=== PATIENT | female | born 1980 | race Caucasian/White ===

== ENCOUNTER → 2020-10-16 11:54 | Outpatient (CLI) | payer OTHER, SELFPAY ==
[2020-10-16 19:11] LABS: Add Manual Diff / Slide Review NO; Basophils Absolute Auto 0 /uL (0-100); Basophils Percent Auto 0.2 % (0-2); Eosinophils Absolute Auto 100 /uL (0-450); Eosinophils Percent Auto 1.2 % (2-4); Hematocrit 39.9 % (36-46); Hemoglobin 13.1 g/dL (12.0-16.0); Lymphocytes Absolute Auto 1500 /uL (1100-4500); Lymphocytes Percent Auto 25.1 % (25-40); Mean Corpuscular HGB Conc 32.7 % (30-36); Mean Corpuscular Hemoglobin 30.1 PG (26-34); Monocytes Absolute Auto 500 /uL (0-900); Monocytes Percent Auto 8.2 % (3-14); Neutrophils Absolute Auto 4000 /uL (1500-7000); Neutrophils Percent Auto 65.3 % (50-75); Platelet Count 211 X10^3/uL (150-400); Red Blood Cell Count 4.34 X10^6/uL (4.0-5.2); Red Cell Distribution Width 13.4 % (11.6-14.8); White Blood Cell Count 6.1 X10^3/uL (4.5-11.0)
[2020-10-16 19:57] LABS: COVID19 - ORCAS (NP or Nasal) Negative (Negative)
== END ==
PROVIDERS: Referring Provider Physician Assistant Medical; Visit Provider Physician Assistant Medical
DX: Z20.822 Contact with and (suspected) exposure to COVID-19 (principal); R50.9 Fever, unspecified
CPT/HCPCS: 85025; U0003

== ENCOUNTER → 2023-01-27 09:36 | Outpatient (CLI) | payer OTHER, SELFPAY ==
[2023-01-27 20:19] LABS: Add Manual Diff / Slide Review NO; Basophils Absolute Auto 0 /uL (0-100); Basophils Percent Auto 0.5 % (0-2); Eosinophils Absolute Auto 100 /uL (0-450); Eosinophils Percent Auto 2.4 % (2-4); Hematocrit 38.7 % (36-46); Hemoglobin 12.8 g/dL (12.0-16.0); Lymphocytes Absolute Auto 1700 /uL (1100-4500); Lymphocytes Percent Auto 40.8 % (25-40); Mean Corpuscular HGB Conc 33.1 % (30-36); Mean Corpuscular Hemoglobin 30.3 PG (26-34); Mean Corpuscular Volume 91.3 fL (80-100); Monocytes Absolute Auto 300 /uL (0-900); Monocytes Percent Auto 6.4 % (3-14); Neutrophils Absolute Auto 2100 /uL (1500-7000); Neutrophils Percent Auto 49.9 % (50-75); Platelet Count 253 X10^3/uL (150-400); Red Blood Cell Count 4.23 X10^6/uL (4.0-5.2); Red Cell Distribution Width 13.4 % (11.6-14.8); White Blood Cell Count 4.2 X10^3/uL (4.5-11.0)
[2023-01-27 20:31] LABS: Hemoglobin A1C% w Est Avg Glu 5.1 % (4.0-6.0)
[2023-01-27 20:44] LABS: Alanine Aminotransferase 20 IU/L (<35); Albumin Globulin Ratio 1.2 (1.0-2.8); Alkaline Phosphatase 90 U/L (38-126); Aspartate Aminotransferase 25 IU/L (14-36); Bilirubin Total 0.4 mg/dL (0.2-1.3); Blood Urea Nitrogen 15 mg/dL (7-17); Calcium 9.2 mg/dL (8.4-10.2); Carbon Dioxide 25 mmol/L (22-32); Chloride 103 mmol/L (98-107); Cholesterol 219 mg/dL (140-199); Estimated Glomerular Filt Rate > 60 mL/min (>60); Globulin 3.4 g/dL (1.7-4.1); Glucose 94 mg/dL (70-100); HDL Cholesterol 48 mg/dL (40-60); HEMOLYSIS < 15 (0-50); LDL Cholesterol Calculated 151 mg/dL (<100); Potassium 4.4 mmol/L (3.4-5.1); Sodium 137 mmol/L (137-145); Total Protein 7.4 g/dL (6.3-8.2); Triglycerides 100 mg/dL (35-150)
[2023-01-27 21:01] LABS: Thyroid Stimulating Hormone 1.25 uIU/mL (0.47-4.68)
[2023-01-27 21:12] LABS: Ferritin 21 ng/mL (6-137)
== END ==
PROVIDERS: PCP Family Medicine; Visit Provider Family Medicine
DX: E66.9 Obesity, unspecified (principal); R53.83 Other fatigue; Z13.1 Encounter for screening for diabetes mellitus; Z13.6 Encounter for screening for cardiovascular disorders
CPT/HCPCS: 80053; 80061; 82728; 83036; 84443; 85025

== ENCOUNTER → 2023-03-06 10:31 | Outpatient (CLI) | payer OTHER, SELFPAY ==
--- NOTE | 2023-03-06 10:32 | DI.MG.S_ITS ---
BILATERAL DIGITAL SCREENING MAMMOGRAM 3D/2D WITH CAD: 03/06/2023 CLINICAL: Routine screening. Baseline exam. No prior exams were available for comparison. Both breasts are heterogeneously dense, which may obscure small masses (category c / 51-75% glandular tissue). Current study was also evaluated with a Computer Aided Detection (CAD) system. There is a focal asymmetry in the right breast at 12 o'clock middle depth. No other significant masses, calcifications, or other findings are seen in either breast. IMPRESSION: INCOMPLETE: NEEDS ADDITIONAL IMAGING EVALUATION The focal asymmetry in the right breast is indeterminate. Additional views with possible ultrasound are recommended. Based on the Tyrer Cuzick model (a risk assessment model) the patient's lifetime risk is 15.0% and her 10 year risk is 2.1%. According to the ACR, ACS, and NCCN guidelines, an annual breast MRI exam along with mammogram is recommended if the patient's lifetime risk is 20% or greater. This exam was interpreted at Station ID: [id number]. NOTE: For mammograms, a report in lay terms will be sent to the patient. Approximately 15% of breast malignancies will not be visualized mammographically. In the management of a palpable breast mass, a negative mammogram must not discourage biopsy of a clinically suspicious lesion. Electronically Signed By: Love cortez/rob:03/08/2023 12:26:41 letter sent: Additional Imaging Needed ACR BI-RADS Category 0: Incomplete 3340F
== END ==
PROVIDERS: PCP Family Medicine; Referring Provider Family Medicine; Visit Provider Family Medicine
DX: Z12.31 Encounter for screening mammogram for malignant neoplasm of breast (principal)
CPT/HCPCS: 77063; 77067

== ENCOUNTER → 2023-04-08 09:11 | Outpatient (CLI) | payer OTHER, SELFPAY ==
--- NOTE | 2023-04-08 09:12 | DI.MG.S_ITS ---
UNILATERAL RIGHT DIGITAL DIAGNOSTIC MAMMOGRAM 3D/2D WITH ADDITIONAL VIEWS: 04/08/2023 CLINICAL: Additional evaluation requested from prior study. Comparison is made to exam dated: 03/06/2023 mammogram - [facility]. The right breast is heterogeneously dense, which may obscure small masses (category c / 51-75% glandular tissue). There is a focal asymmetry in the right breast at 12 o'clock middle depth. This corresponds to finding seen on baseline screening mammogram. No other significant masses or calcifications are seen in the breast. IMPRESSION: INCOMPLETE: NEEDS ADDITIONAL IMAGING EVALUATION Right breast middle 12 o'clock focal asymmetry seen on baseline screening mammogram. An ultrasound is recommended for further evaluation and is scheduled to immediately follow this examination. Based on the Tyrer Cuzick model (a risk assessment model) the patient's lifetime risk is 15.0% and her 10 year risk is 2.1%. According to the ACR, ACS, and NCCN guidelines, an annual breast MRI exam along with mammogram is recommended if the patient's lifetime risk is 20% or greater. This exam was interpreted at Station ID: [id number]. NOTE: For mammograms, a report in lay terms will be sent to the patient. Approximately 15% of breast malignancies will not be visualized mammographically. In the management of a palpable breast mass, a negative mammogram must not discourage biopsy of a clinically suspicious lesion. Electronically Signed By: Chayo Gallegos M.D., PH.D eb/:04/08/2023 13:18:38 ACR BI-RADS Category 0: Incomplete 3340F
--- NOTE | 2023-04-08 09:12 | DI.US.S_ITS ---
LIMITED ULTRASOUND OF RIGHT BREAST: 04/08/2023 CLINICAL: Patient returns today to evaluate an asymmetry in the right breast. Comparison is made to exams dated: 04/08/2023 mammogram and 03/06/2023 mammogram - [facility]. Color flow and real-time ultrasound of the right breast 12 o'clock region were performed. No sonographic correlate for mammographic focal asymmetry is seen at 12 o'clock, 5 cm from the nipple. IMPRESSION: PROBABLY BENIGN No sonographic correlate for mammographic focal asymmetry at 12 o'clock seen on baseline screening mammogram 03/06/2023. Finding is probably benign. Recommend follow-up Right breast mammogram in 6 months to demonstrate stability. Findings and recommendations were conveyed to the patient during today's evaluation. This exam was interpreted at Station ID: [id number]. Electronically Signed By: Chayo Gallegos M.D., PH.D eb/:04/08/2023 13:18:08 letter sent: Followup Recommended Ultrasound BI-RADS: 3 Probably benign
== END ==
PROVIDERS: PCP Family Medicine; Referring Provider Family Medicine; Visit Provider Family Medicine
DX: R92.8 Other abnormal and inconclusive findings on diagnostic imaging of breast (principal); N64.89 Other specified disorders of breast
CPT/HCPCS: 76642; 77065; G0279

== ENCOUNTER → 2023-05-25 13:03 | Outpatient (CLI) | payer OTHER, SELFPAY ==
[2023-05-25 20:11] LABS: LDL Cholesterol Direct 112 mg/dL (<100)
[2023-05-25 20:49] LABS: Vitamin B12 Reflex MMA if <400 203 pg/mL (239-931)
[2023-05-28 22:34] LABS: Methylmalonic Acid,Serum 220 nmol/L (0-378)
== END ==
PROVIDERS: PCP Family Medicine; Visit Provider Family Medicine
DX: Z71.3 Dietary counseling and surveillance (principal); E78.2 Mixed hyperlipidemia
CPT/HCPCS: 82607; 83721; 83921

== ENCOUNTER → 2024-01-17 11:56 | Outpatient (CLI) | payer BC, SELFPAY ==
--- NOTE | 2024-01-17 11:58 | DI.MG.S_ITS ---
BILATERAL DIGITAL DIAGNOSTIC MAMMOGRAM 3D/2D: 01/17/2024 CLINICAL: Short term follow up of the right breast, due for bilateral imaging. Comparison is made to exams dated: 04/08/2023 mammogram and 03/06/2023 mammogram - [facility]. The breasts are heterogeneously dense, which may obscure small masses (category c / 51-75% glandular tissue). There is a focal asymmetry in the right breast at 12 o'clock middle depth, not significantly changed since baseline screening mammogram 03/06/2023. No prior ultrasound correlate identified. No other significant masses, calcifications, or other findings are seen in either breast. IMPRESSION: PROBABLY BENIGN Right breast focal asymmetry at 12 o'clock middle depth, stable since baseline screening mammogram 03/06/2023 and without prior ultrasound correlate. Recommend follow-up mammogram in 12 months to demonstrate near 2 year stability. Patient will be due for bilateral exam at that time. Findings and recommendations were conveyed to the patient during today's evaluation. Based on the Tyrer Cuzick model (a risk assessment model) the patient's lifetime risk is 14.9% and her 10 year risk is 2.2%. According to the ACR, ACS, and NCCN guidelines, an annual breast MRI exam along with mammogram is recommended if the patient's lifetime risk is 20% or greater. This exam was interpreted at Station ID: [id number]. NOTE: For mammograms, a report in lay terms will be sent to the patient. Approximately 15% of breast malignancies will not be visualized mammographically. In the management of a palpable breast mass, a negative mammogram must not discourage biopsy of a clinically suspicious lesion. Electronically Signed By: Chayo Gallegos M.D., Ph.D. eb/:01/17/2024 12:31:56 letter sent: Followup Recommended ACR BI-RADS Category 3: Probably Benign [id number]
== END ==
LOC: MAMMO 11:58
PROVIDERS: PCP Family Medicine; Referring Provider Family Medicine; Visit Provider Family Medicine
DX: R92.8 Other abnormal and inconclusive findings on diagnostic imaging of breast (principal); N64.89 Other specified disorders of breast
CPT/HCPCS: 77066; G0279

== ENCOUNTER 2024-02-29 14:14 | Emergency (ER) | payer BC, SELFPAY ==
[2024-02-29] VITALS (7 sets, daily range): BP systolic 109–144; BP diastolic 68–89; PULSE 66–81; RESP 18; TEMP 36.8; O2SAT 98–100; BMI 35.7
[2024-02-29 15:29] LABS: Add Manual Diff / Slide Review NO; Basophils Absolute Auto 0 /uL (0-100); Basophils Percent Auto 0.6 % (0-2); Eosinophils Absolute Auto 100 /uL (0-450); Hematocrit 40.7 % (36-46); Hemoglobin 13.5 g/dL (12.0-16.0); Lymphocytes Absolute Auto 2100 /uL (1100-4500); Lymphocytes Percent Auto 32.5 % (25-40); Mean Corpuscular HGB Conc 33.1 % (30-36); Mean Corpuscular Volume 90.8 fL (80-100); Monocytes Absolute Auto 300 /uL (0-900); Neutrophils Absolute Auto 4000 /uL (1500-7000); Neutrophils Percent Auto 60.9 % (50-75); Platelet Count 241 X10^3/uL (150-400); Red Blood Cell Count 4.48 X10^6/uL (4.0-5.2); Red Cell Distribution Width 13.1 % (11.6-14.8); White Blood Cell Count 6.6 X10^3/uL (4.5-11.0)
[2024-02-29 15:35] LABS: Alanine Aminotransferase 17 IU/L (<35); Albumin 4.4 g/dL (3.5-5.0); Albumin Globulin Ratio 1.3 (1.0-2.8); Alkaline Phosphatase 91 U/L (38-126); Aspartate Aminotransferase 26 IU/L (14-36); BUN Creatinine Ratio 12.4 (6-22); Bilirubin Total 0.4 mg/dL (0.2-1.3); Blood Urea Nitrogen 13 mg/dL (7-17); Calcium 9.1 mg/dL (8.4-10.2); Carbon Dioxide 24 mmol/L (22-32); Chloride 106 mmol/L (98-107); Estimated Glomerular Filt Rate > 60 mL/min (>60); Globulin 3.4 g/dL (1.7-4.1); Glucose 93 mg/dL (70-100); HEMOLYSIS < 15 (0-50); Lipase 106 U/L (23-300); Potassium 3.8 mmol/L (3.4-5.1); Sodium 137 mmol/L (137-145); Total Protein 7.8 g/dL (6.3-8.2)
--- NOTE | 2024-02-29 18:13 | DI.CT.S_ITS ---
PROCEDURE: CT ABDOMEN PELVIS W CON INDICATIONS: RLQ ABD pain eval for appy TECHNIQUE: After the administration of intravenous contrast, axial sections acquired from the lung bases to the pubic symphysis. Coronal and sagittal reformats were performed. For radiation dose reduction, the following was used: automated exposure control, adjustment of mA and/or kV according to patient size. COMPARISON: None. FINDINGS: Image quality: Diagnostic. Lower Chest: No significant findings. ABDOMEN: Liver: No solid mass. Gallbladder: No radiopaque gallstones or wall thickening. Biliary ducts: No biliary dilation. Pancreas: No ductal dilation. Spleen: Size is within normal limits. Adrenal Glands: No adrenal nodules. Kidneys and Ureters: No hydronephrosis. No solid mass. No complex renal cystic lesion which requires follow up. Stomach and Bowel: Normal colonic caliber, without significant wall thickening. No significant diverticular disease. Normal appendix. Peritoneum: No abnormal intraperitoneal fluid. No free air. Ventral Wall: No significant ventral hernia. Small umbilical hernia containing fat. Abdominal Nodes: No retroperitoneal or mesenteric adenopathy by size criteria. Vessels: Aorta and inferior vena cava are normal in size. PELVIS: Pelvic Organs: Right-sided corpus luteum. Bladder: Diffuse bladder wall thickening. Pelvic Nodes: No enlarged lymph nodes. Miscellaneous: No inguinal hernias are seen. Bones: No aggressive osseous abnormality. IMPRESSION: Diffuse bladder wall thickening, which may indicate cystitis. Right corpus luteum. Normal appendix. No nephrolithiasis. No significant diverticular disease. Dictated by: Huan Orantes M.D. on 02/29/2024 at 18:53 Approved by: Huan Orantes M.D. on 02/29/2024 at 18:55
[2024-02-29 18:45] LABS: Pregnancy Test Serum,Qual Negative (Negative)
--- NOTE | 2024-02-29 19:15 | ED_ITS ---
HPI - General Adult General Chief complaint: Abdominal Pain Stated complaint: poss appendicitis, sent by pcp Time Seen by Provider: 02/29/24 18:03 Source: patient Mode of arrival: Ambulatory History of Present Illness HPI narrative: Patient is a 43-year-old female who is sent to the emergency department for evaluation of right lower quadrant abdominal pain and concern for appendicitis. She states 1 month ago after she had her menstrual cycle she did have some abdominal discomfort that persisted longer than normal however those symptoms completely resolved. She stated that about 1 week ago she would her normal menstrual cycle and had that discomfort once again but has now persisted longer than what it did last month. Some nausea but no vomiting. No fevers. No urinary symptoms. No vaginal bleeding past her normal menstrual cycle. No change in bowel habits. No fevers. No prior abdominal surgeries. Patient initially started in the middle of her abdomen is now right lower quadrant Related Data Previous Rx's Medication Instructions Recorded bupropion HCl 150 mg 24 hr tablet, 150 mg PO QAM #90 tabs 12/29/23 extended release (Wellbutrin XL) Allergies Allergy/AdvReac Type Severity Reaction Status Date / Time morphine Allergy Severe Hives Verified 10/01/23 15:25 Review of Systems Review of Systems ROS Unobtainable: All systems reviewed & are unremarkable except as noted in HPI and below Patient History Medical History Migraines (~1994) Headache (~1992) Chicken pox (~1983) Surgical History (Updated 12/09/22 @ 21:57 by Anette Little) Anesthesia History of tonsillectomy (~1992) Family History (Updated 12/09/22 @ 21:59 by Anette Little) Mother Skin cancer Grandfather Cancer Grandmother History of heart disease Social History Smoking Status: Former smoker 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 Smoking Status: Former smoker alcohol intake frequency: other Substance Use Type: does not use Exam Initial Vital Signs Initial Vital Signs: Vital Signs Temperature 98.3 F 02/29/24 14:44 Pulse Rate 70 02/29/24 14:44 Respiratory Rate 18 02/29/24 14:44 Blood Pressure 144/83 H 02/29/24 14:44 Pulse Oximetry 100 02/29/24 14:44 Oxygen Delivery Method Room Air 02/29/24 14:44 Const General: cooperative, comfortable and No ill appearing [facility] Head: normal to inspection and normocephalic Resp Effort & Inspection: normal respiratory effort Cardio Rate: regular rate GI Inspection: normal to inspection and non-distended Palpation: soft, No firm, No guarding and tender (Lower abdomen, right lower quadrant) Back/Spine/Pelvis Back: No CVA tenderness Skin General: no rashes or lesions noted Neuro General: patient alert, patient awake and moves all extremities Extrem General: normal to inspection and capillary refill normal Course Orders Ordered: ED Orders 02/29/24 15:10 Complete Blood Count AUTO DIFF Stat Comprehensive Metabolic Panel Stat Lipase Stat Test Serum,Qual Stat 02/29/24 18:13 CT abdomen pelvis w con Stat Discontinued Medications Ondansetron HCl (Ondansetron 4 Mg/2 Ml Inj) 4 mg IV NOW PRN PRN Reason: Nausea And Vomiting Ondansetron HCl (Ondansetron 4 Mg Odt) 4 mg PO NOW PRN PRN Reason: Nausea And Vomiting Vital Signs Vital signs: Vital Signs - 8 hr 02/29/24 16:49 02/29/24 16:49 02/29/24 17:00 Pulse Rate 71 Blood Pressure 131/89 116/77 Pulse Oximetry 100 02/29/24 17:00 02/29/24 17:30 02/29/24 17:30 Pulse Rate 66 79 Blood Pressure 115/75 Pulse Oximetry 100 99 02/29/24 18:00 02/29/24 18:00 02/29/24 18:41 Pulse Rate 80 81 Blood Pressure 109/68 Pulse Oximetry 98 99 02/29/24 19:00 Pulse Rate 74 Blood Pressure Pulse Oximetry 98 Medical Decision Making Lab Data Lab results reviewed: Yes I reviewed the patient's lab results. 02/29/24 15:10 02/29/24 15:10 Labs: Lab Results 02/29/24 Range/Units 15:10 WBC 6.6 (4.5-11.0) X10^3/uL RBC 4.48 (4.0-5.2) X10^6/uL Hgb 13.5 (12.0-16.0) g/dL Hct 40.7 (36-46) % MCV 90.8 (80-100) fL MCH 30.0 (26-34) PG MCHC 33.1 (30-36) % RDW 13.1 (11.6-14.8) % Plt Count 241 (150-400) X10^3/uL Neut % (Auto) 60.9 (50-75) % Lymph % (Auto) 32.5 (25-40) % [place] % (Auto) 5.0 (3-14) % Eos % (Auto) 1.0 L (2-4) % Baso % (Auto) 0.6 (0-2) % Neut # (Auto) 4000 (5940-4593) /uL Lymph # (Auto) 2100 (4101-5214) /uL [place] # (Auto) 300 (0-900) /uL Eos # (Auto) 100 (0-450) /uL Baso # (Auto) 0 (0-100) /uL Sodium 137 (137-145) mmol/L Potassium 3.8 (3.4-5.1) mmol/L Chloride 106 (98-107) mmol/L Carbon Dioxide 24 (22-32) mmol/L BUN 13 (7-17) mg/dL Creatinine 1.05 H (0.52-1.04) mg/dL Estimated GFR > 60 (>60) mL/min BUN/Creatinine Ratio 12.4 (6-22) Glucose 93 (70-100) mg/dL Calcium 9.1 (8.4-10.2) mg/dL Total Bilirubin 0.4 (0.2-1.3) mg/dL AST 26 (14-36) IU/L ALT 17 (<35) IU/L Alkaline Phosphatase 91 (38-126) U/L Total Protein 7.8 (6.3-8.2) g/dL Albumin 4.4 (3.5-5.0) g/dL Globulin 3.4 (1.7-4.1) g/dL Albumin/Globulin Ratio 1.3 (1.0-2.8) Lipase 106 (23-300) U/L Serum , Qual Negative (Negative) Urine Dip Bedside Urine Glucose Negative Bedside Urine Bilirubin - Negative Bedside Urine Ketone - Negative Urine Specific Fitzgerald 1.015 Bedside Urine Occult Blood - Negative Bedside Urine pH 6.0 Bedside Urine Protein - Negative Bedside Urine Urobilinogen - Negative Bedside Urine Nitrite - Negative Bedside Urine Leukocytes - Negative Esterase Point of care testing: Urine Dip Bedside Urine Glucose Negative Bedside Urine Bilirubin - Negative Bedside Urine Ketone - Negative Urine Specific Fitzgerald 1.015 Bedside Urine Occult Blood - Negative Bedside Urine pH 6.0 Bedside Urine Protein - Negative Bedside Urine Urobilinogen - Negative Bedside Urine Nitrite - Negative Bedside Urine Leukocytes - Negative Esterase Imaging Data CT scan - abdomen/pelvis: Radiologist's Impression: PROCEDURE: CT ABDOMEN PELVIS W CON INDICATIONS: RLQ ABD pain eval for appy TECHNIQUE: After the administration of intravenous contrast, axial sections acquired from the lung bases to the pubic symphysis. Coronal and sagittal reformats were performed. For radiation dose reduction, the following was used: automated exposure control, adjustment of mA and/or kV according to patient size. COMPARISON: None. FINDINGS: Image quality: Diagnostic. Lower Chest: No significant findings. ABDOMEN: Liver: No solid mass. Gallbladder: No radiopaque gallstones or wall thickening. Biliary ducts: No biliary dilation. Pancreas: No ductal dilation. Spleen: Size is within normal limits. Adrenal Glands: No adrenal nodules. Kidneys and Ureters: No hydronephrosis. No solid mass. No complex renal cystic lesion which requires follow up. Stomach and Bowel: Normal colonic caliber, without significant wall thickening. No significant diverticular disease. Normal appendix. Peritoneum: No abnormal intraperitoneal fluid. No free air. Ventral Wall: No significant ventral hernia. Small umbilical hernia containing fat. Abdominal Nodes: No retroperitoneal or mesenteric adenopathy by size criteria. Vessels: Aorta and inferior vena cava are normal in size. PELVIS: Pelvic Organs: Right-sided corpus luteum. Bladder: Diffuse bladder wall thickening. Pelvic Nodes: No enlarged lymph nodes. Miscellaneous: No inguinal hernias are seen. Bones: No aggressive osseous abnormality. IMPRESSION: Diffuse bladder wall thickening, which may indicate cystitis. Right corpus luteum. Normal appendix. No nephrolithiasis. No significant diverticular disease. MDM Narrative Medical decision making narrative: Labs are unremarkable. CT scan shows no acute pathology. No skin changes over the area concerning for zoster. No specific source of infection found on exam. I did discuss this with the patient. She understands lack of a definitive diagnosis. Plan will be to discharge patient home with instructions to follow- up with primary doctor to discuss further evaluation if needed. She was given return precautions. She expressed understanding and agreement. Discharge Plan Departure Patient Disposition: Home Clinical Impression: Abdominal pain Instructions: DI for Abdominal Pain-Adult Activity Restrictions/Additional Instructions: Your workup here in the emergency department today is very reassuring. There was no signs of appendicitis. Unfortunately I do not have a definitive diagnosis for the cause of your discomfort. Recommend that you contact your primary care doctor for a follow-up and to discuss further evaluation if needed. Return to the emergency department for new symptoms. Prescriptions: No Action bupropion HCl [Wellbutrin XL] 150 mg tablet extended release 24 hr 150 mg PO QAM Qty: 90 1RF Referrals: Tina Garcia MD [Primary Care Provider] - Stand Alone Forms: Patient Portal/API/Survey
== END 2024-02-29 19:34 | disposition home or self-care (01) ==
PROVIDERS: Emergency Medicine; Emergency Provider Emergency Medicine; PCP Family Medicine
DX: R10.31 Right lower quadrant pain (principal)
CPT/HCPCS: 36415; 74177; 80053; 81003; 83690; 84703; 85025; 99284; Q9967

== ENCOUNTER → 2024-03-06 14:40 | Outpatient (CLI) | payer BC, SELFPAY | PROVIDERS: PCP Family Medicine; Visit Provider Family Medicine | DX: R39.89 Other symptoms and signs involving the genitourinary system (principal); R10.2 Pelvic and perineal pain; N32.89 Other specified disorders of bladder | CPT/HCPCS: 87086 ==

== ENCOUNTER → 2024-03-20 12:06 | Outpatient (CLI) | payer BC, SELFPAY ==
--- NOTE | 2024-03-20 12:07 | DI.US.S_ITS ---
PROCEDURE: US PELVIC COMPLETE INDICATIONS: PAIN; POSSIBLE ENDOMETRIOSIS TECHNIQUE: Real-time scanning was performed of the pelvic organs, with image documentation. Additional endovaginal scanning was necessary due to incomplete visualization of the adnexal and endometrial structures by transabdominal scanning. COMPARISON: [facility], CT, CT ABDOMEN PELVIS W CON, 02/29/2024, 18:25. FINDINGS: Uterus: Uterus is anteverted and normal in size at 6.8 x 3.9 x 4.5 cm. The myometrium is homogeneous. The endometrium measures 10 mm combined thickness. There is a poorly visualized nonvascular focus echogenicity at the anterior left cervical wall measuring 2.1 x 1.2 x 1.8 cm. Ovaries: The right ovary measures 3.6 x 2.4 x 3.0 cm, with a calculated ovarian volume of 13.5 cc. The left ovary measures 1.0 x 2.3 x 1.5 cm, with a calculated ovarian volume of 1.7 cc. 2.2 x 1.9 x 1.3 cm simple right ovarian cyst. Other: No pathologic free abdominal or pelvic fluid. IMPRESSION: Poorly characterized nonvascular partially calcified mass at the cervical wall. While this could represent a low lying fibroid, other etiologies cannot be definitively excluded. Direct visualization and/or MRI with [employer] protocol is recommended. We strive to produce accurate, complete, and clear reports of imaging services. To assist us in improving patient care, this report was composed using standard report templates and voice recognition software. Therefore, it may contain abnormal punctuation, insertions and/or omissions. Occasional wrong-word or sound-alike substitutions may occur. Though we review the report and make efforts to correct it, we do recommend that the report be read carefully in proper context to recognize any text inaccuracies. Dictated by: Kelly Gay M.D. on 03/21/2024 at 9:58 Approved by: Kelly Gay M.D. on 03/21/2024 at 10:00
== END ==
PROVIDERS: PCP Family Medicine; Referring Provider Family Medicine; Visit Provider Family Medicine
DX: N83.291 Other ovarian cyst, right side (principal); R10.2 Pelvic and perineal pain; N32.89 Other specified disorders of bladder
CPT/HCPCS: 76830; 76856

== ENCOUNTER → 2024-03-26 14:38 | Outpatient (CLI) | payer BC, SELFPAY ==
--- NOTE | 2024-03-26 14:39 | DI.MRI.S_ITS ---
PROCEDURE: MR PELVIS WO/W CON INDICATIONS: MASS TECHNIQUE: Coronal HASTE, sagittal breath-hold T2 FSE; axial T1 FSE with and without fat saturation through the pelvis. Optional long- and short-axis uterine nonbreath-hold T2 FSE through the uterus. Sagittal or axial dynamic VIBE during administration of contrast. Post-contrast axial or coronal VIBE/2-D FLASH with fat saturation from the iliac crests to the symphysis. Restricted diffusion weighted imaging and ADC. COMPARISON: [facility], US, US PELVIC COMPLETE, 03/20/2024, 12:20. [facility], CT, CT ABDOMEN PELVIS W CON, 02/29/2024, 18:25. FINDINGS: Image quality: Excellent. Uterus: Uterus is anteverted and normal in size. Measures approximately 8 cm. Endometrium is normal in thickness measuring at 7 mm. Junctional zone is normal in thickness at 12 mm or less. No uterine fibroids. Small T2 hyperintense nabothian cysts. Upper vagina/lower cervix left lateral lesion measuring 2.1 x 2.1 cm, (24/). The abnormality demonstrates T2 hypointense signal, intrinsic T1 hyperintense signal without signal dropout on the fat suppression, no enhancement, and no restricted diffusion. This corresponds to the ultrasound abnormality. Adnexa: Both ovaries are normal in size, without suspicious cystic or solid lesions. Dominant right ovarian follicle or corpus luteum measuring 1.9 cm. Urinary system: Bladder wall is normal in thickness. Distal ureters are non distended. Urethra appears normal in morphology. Nodes and vessels: No pelvic or inguinal adenopathy by size criteria. Iliac vessels are normal in size. Bowel and peritoneum: No pathologic free pelvic fluid. Scant free fluid in the pelvic cul-de-sac is felt to be physiologic. Inferior colon and small bowel loops are normal in caliber. Soft tissues: No inguinal hernias. No findings of pelvic floor incompetence in the absence of provocation. Bones: Marrow demonstrates normal overall signal. IMPRESSION: 1. Upper vagina/lower cervix left lateral lesion measuring 2.1 cm. Indeterminate. The lesion demonstrates T2 hypointense and intrinsic T1 hyperintense signal. Endometrioma or proteinaceous cyst are diagnostic considerations. Cervical fibroid with prior hemorrhage is also possibility. Less likely malignant lesion. Recommend biopsy for further tissue diagnosis. 2. No significant ovarian cysts. Dictated by: Jose Alberto Cortés M.D. on 03/27/2024 at 8:23 Approved by: Jose Alberto Cortés M.D. on 03/27/2024 at 8:51
== END ==
LOC: MRI 14:38
PROVIDERS: PCP Family Medicine; Referring Provider Family Medicine; Visit Provider Family Medicine
DX: N88.8 Other specified noninflammatory disorders of cervix uteri (principal); R93.5 Abnormal findings on diagnostic imaging of other abdominal regions, including retroperitoneum; R93.89 Abnormal findings on diagnostic imaging of other specified body structures; R10.2 Pelvic and perineal pain
CPT/HCPCS: 72197; A9579

== ENCOUNTER → 2024-04-14 14:26 | Outpatient (CLI) | payer BC, SELFPAY ==
--- NOTE | 2024-04-14 14:27 | DI.US.S_ITS ---
PROCEDURE: US PELVIC COMPLETE INDICATIONS: Cervical mass/ovarian cyst TECHNIQUE: Real-time scanning was performed of the pelvic organs, with image documentation. Additional endovaginal scanning was necessary due to incomplete visualization of the adnexal and endometrial structures by transabdominal scanning. COMPARISON: [facility], MR, MR PELVIS WO/W CON, 03/26/2024, 15:10. [facility], US, US PELVIC COMPLETE, 03/20/2024, 12:20. FINDINGS: Uterus: Uterus is anteverted and normal in size at 8.0 x 4.3 x 4.8 cm. The myometrium is homogeneous. The endometrium measures 7 mm in combined thickness. At the left side of the cervix, there is a 2.0 x 1.1 x 2.0 cm mass with internal echogenic debris and without internal vascularity. Ovaries: The right ovary measures 2.5 x 1.9 x 1.9 cm, with a calculated ovarian volume of 4.7 cc. The left ovary measures 2.7 x 2.0 x 2.7 cm, with a calculated ovarian volume of 7.6 cc. The ovaries have a normal sonographic appearance. Less than 12 follicles can be seen in each ovary. No adnexal masses are seen. There has been interval resolution of the right corpus luteal cyst. Other: No pathologic free abdominal or pelvic fluid. There is a small amount of free fluid in the right adnexal region, likely physiologic. IMPRESSION: 1. Re-identified cervical 2.0 cm mass with internal debris, which may represent a proteinaceous cyst versus an endometrioma. Sampling would be recommended for confirmation. 2. No other sonographic abnormality of the uterus or ovaries. We strive to produce accurate, complete, and clear reports of imaging services. To assist us in improving patient care, this report was composed using standard report templates and voice recognition software. Therefore, it may contain abnormal punctuation, insertions and/or omissions. Occasional wrong-word or sound-alike substitutions may occur. Though we review the report and make efforts to correct it, we do recommend that the report be read carefully in proper context to recognize any text inaccuracies. Dictated by: Tadeo Garnica M.D. on 04/17/2024 at 14:36 Approved by: Tadeo Garnica M.D. on 04/17/2024 at 14:43
== END ==
PROVIDERS: PCP Family Medicine; Referring Provider Student in an Organized Health Care Education/Training Program; Visit Provider Student in an Organized Health Care Education/Training Program
DX: N83.201 Unspecified ovarian cyst, right side (principal); N88.8 Other specified noninflammatory disorders of cervix uteri
CPT/HCPCS: 76830; 76856

== ENCOUNTER → 2024-04-20 10:24 | Outpatient (CLI) | payer BC, SELFPAY | PROVIDERS: PCP Family Medicine; Visit Provider Physician Assistant Medical | DX: R10.31 Right lower quadrant pain (principal) | CPT/HCPCS: 87086 ==

== ENCOUNTER → 2024-05-26 09:10 | Outpatient (CLI) | payer BC, SELFPAY ==
[2024-05-26 10:12] LABS: Add Manual Diff / Slide Review NO; Basophils Absolute Auto 0 /uL (0-100); Basophils Percent Auto 0.4 % (0-2); Eosinophils Absolute Auto 100 /uL (0-450); Eosinophils Percent Auto 2.1 % (2-4); Hematocrit 39.1 % (36-46); Lymphocytes Absolute Auto 1700 /uL (1100-4500); Lymphocytes Percent Auto 34.9 % (25-40); Mean Corpuscular HGB Conc 33.1 % (30-36); Mean Corpuscular Hemoglobin 30.1 PG (26-34); Mean Corpuscular Volume 90.8 fL (80-100); Monocytes Absolute Auto 400 /uL (0-900); Monocytes Percent Auto 7.3 % (3-14); Neutrophils Absolute Auto 2800 /uL (1500-7000); Neutrophils Percent Auto 55.3 % (50-75); Platelet Count 248 X10^3/uL (150-400); Red Blood Cell Count 4.31 X10^6/uL (4.0-5.2); Red Cell Distribution Width 13.4 % (11.6-14.8)
[2024-05-26 10:34] LABS: BUN Creatinine Ratio 14.7 (6-22); Blood Urea Nitrogen 14 mg/dL (7-17); Calcium 9.1 mg/dL (8.4-10.2); Carbon Dioxide 25 mmol/L (22-32); Chloride 105 mmol/L (98-107); Cholesterol 203 mg/dL (140-199); Estimated Glomerular Filt Rate > 60 mL/min (>60); Glucose 85 mg/dL (70-100); HDL Cholesterol 48 mg/dL (40-60); HEMOLYSIS < 15 (0-50); LDL Cholesterol Calculated 130 mg/dL (<100); Sodium 138 mmol/L (137-145); Triglycerides 126 mg/dL (35-150)
[2024-05-26 11:09] LABS: Ferritin 24 ng/mL (6-137)
[2024-05-26 12:26] LABS: Vitamin B12 214 pg/mL (239-931)
== END ==
PROVIDERS: PCP Family Medicine; Referring Provider Family Medicine; Visit Provider Family Medicine
DX: E53.8 Deficiency of other specified B group vitamins (principal); E78.2 Mixed hyperlipidemia; Z13.0 Encounter for screening for diseases of the blood and blood-forming organs and certain disorders involving the immune mechanism; Z13.1 Encounter for screening for diabetes mellitus; Z13.6 Encounter for screening for cardiovascular disorders; F41.9 Anxiety disorder, unspecified
CPT/HCPCS: 36415; 80048; 80061; 82607; 82728; 85025

== ENCOUNTER → 2025-04-04 09:13 | Outpatient (CLI) | payer OTHER, SELFPAY | PROVIDERS: PCP Family Medicine; Visit Provider Physician Assistant | DX: J02.9 Acute pharyngitis, unspecified (principal) | CPT/HCPCS: 87070 ==